=== PATIENT | male | born 1975 | race Two or more races ===

== ENCOUNTER 2023-09-22 19:20 | Emergency (ER) | payer OTHER ==
[~2023-09-22] VITALS: Ht 170.2 cm; Wt 83.9 kg
[2023-09-22 19:39] VITALS: TEMP 98.5
[2023-09-22] MEDS ORDERED: IV NS 0.9% 250 ML IV ONE (20:08)
[2023-09-22] MEDS ORDERED: IOHEXOL-350 100 ML VIAL IV ONE (20:08)
[2023-09-22] MEDS ORDERED: LABETALOL HCL IV 100MG VIAL ONE (20:10)
[2023-09-22 20:14] LABS: BASOPHILS % (AUTO) 0.1 % (0.0-2.0); EOSINOPHILS % (AUTO) 0.3 % (0.0-6.0); HEMATOCRIT 43 % (39-51); HEMOGLOBIN 14.5 g/dL (13.5-17.5); LYMPHOCYTES # (AUTO) 1.2 K/uL (0.8-4.8); LYMPHOCYTES % (AUTO) 13.5 % (20.0-44.0); MEAN CORPUSCULAR HEMOGLOBIN 30 PG (26.0-33.0); MEAN CORPUSCULAR HGB CONC 34 g/dl (31.0-36.0); MEAN CORPUSCULAR VOLUME 89 fL (80-96); MONOCYTES # (AUTO) 0.5 K/uL (0.1-1.30); MONOCYTES % (AUTO) 5.7 % (2.0-12.0); NEUTROPHILS # (AUTO) 7.2 K/uL (1.8-8.9); NEUTROPHILS % (AUTO) 80.4 % (43.0-81.0); PLATELET COUNT (AUTO) 233 K/uL (150-450); RED BLOOD CELL COUNT(AUTO) 4.77 MIL/uL (4.5-6.0); RED CELL DISTRIBUTION WIDTH 13.8 % (11.5-15.0); WHITE BLOOD COUNT (AUTO) 8.9 K/uL (4.3-11.0)
[2023-09-22 20:22] LABS: CALCIUM, SERUM 9.4 mg/dL (8.5-10.1); CARBON DIOXIDE 31 mmol/L (21-32); CHLORIDE 104 mmol/L (98-107); CREATININE 0.9 mg/dL (0.6-1.3); GLUCOSE 116 mg/dL (74-106); POTASSIUM 3.8 mmol/L (3.5-5.1); SODIUM SERUM 138 mmol/L (136-145); UREA NITROGEN, BLOOD 25 mg/dL (7-18)
[2023-09-22 20:35] LABS: NT-PRO BNP 133 pg/mL (0-125)
[2023-09-22] MEDS: LABETALOL 20 MG/4 ML VIAL IV ONE (20:37)
[2023-09-22 22:40] VITALS: BP 121/76; O2SAT 100
== END 2023-09-22 22:40 | disposition home or self-care (01) ==
LOC: ER 19:22
DX: R07.9 Chest pain, unspecified (principal); I10 Essential (primary) hypertension; E11.9 Type 2 diabetes mellitus without complications; Z60.2 Problems related to living alone
CPT/HCPCS: 99285; 70450; 96374; 71045; 93005 ×2; 71275; 85025; 80048; 36415; 84484 ×2; 83880; J3490 ×2; J7050; Q9967